=== PATIENT | male | born 1995 | race Caucasian/White ===

== ENCOUNTER 2024-05-06 11:19 | Emergency (ER) | payer OTHER ==
[2024-05-06] VITALS (8 sets, daily range): BP systolic 113–126; BP diastolic 69–85
[~2024-05-06] VITALS: Ht 180.3 cm; Wt 61.2 kg
[~2024-05-06 11:19] MED LIST: AMOX/K CLA400 MG/5 M OR; AMPICILLIN500 MG PO; AUGMENTIN875TAB PO; BIAXIN500 M1 PO; CEPHALEXIN250 M1 OR; CETIRIZINE10 MG PO; FLONASE NASAL50 MCG; FLUTICASONE50 MCG; NO HOME MEDS; PREVACID30 M2 PO; PREVPAC PO
[2024-05-06] MEDS ORDERED: [UNRECOGNIZED DRUG - OTHER] (11:40)
[2024-05-06] MEDS ORDERED: traMADol HCL 50 MG/TAB PO ONE (11:55)
[2024-05-06] MEDS ORDERED: predniSONE 20 MG/TAB PO ONE (11:55)
[2024-05-06 12:15] LABS: EOS% 2.2 % (0-8); HEMATOCRIT 46.3 % (39.0-50.0); HEMOGLOBIN 15.7 g/dl (14.0-18.0); IMMATURE GRANULOCYTES 0.5 % (0.0-5.0); LYMPH% 7.4 % (15-41); MEAN CELL VOLUME 86.5 fL CALC (80.0-100.0); MEAN CORPUSCULAR HGB 29.3 pG CALC (26.0-32.0); MEAN CORPUSCULAR HGB CONC 33.9 g/dL CAL (32.0-36.0); MONO% 7.1 % (2-13); NEUT# 6.42 thou/uL (1.82-7.42); NEUT% 81.8 % (42-76); RED BLOOD COUNT 5.35 mill/uL (4.70-6.10); RED CELL DISTRI WIDTH 12.1 % (11.5-15.5)
[2024-05-06 12:32] LABS: POTASSIUM 4.1 mmol/l (3.5-5.1)
[2024-05-06] MEDS ORDERED: MEDDOSEPAK PO (13:51)
[2024-05-06] MEDS ORDERED: NABUMETONE500 MG PO (13:51)
== END 2024-05-06 14:09 | disposition home or self-care (01) | DRG 74 ==
LOC: ED 11:19
PROVIDERS: Emergency Medicine
DX: S84.91XA Injury of unspecified nerve at lower leg level, right leg, initial encounter (principal); X58.XXXA Exposure to other specified factors, initial encounter